=== PATIENT | male | born 1955 | race Caucasian/White ===

== ENCOUNTER → 2019-03-15 15:35 | Outpatient (CLI) | payer BC, SELFPAY ==
--- NOTE | 2019-03-15 15:42 | XR_ITS ---
PROCEDURE: XR KNEE LT 3V CLINICAL INDICATION: LEFT KNEE PAIN, UNSPECIFIED CHRONICITY COMPARISON: No exams were available for comparison FINDINGS: No fracture or dislocation. No lytic or blastic change. There is normal mineralization. The joint spaces are well-preserved except for mild narrowing of the patellofemoral space. No significant degenerative/arthritic changes. There is no loose body seen. No erosive changes evident. There is no effusion. IMPRESSION: Mild degenerate change primarily patellofemoral space Dictated by: Dr. Paco Meek MD 03/16/2019 08:51 Signed by: <Electronically signed by Dr. Paco Meek MD in [facility]> 03/16/2019 08:51
== END ==
PROVIDERS: PCP Family Medicine; Visit Provider Family Medicine
DX: M25.562 Pain in left knee (principal)
CPT/HCPCS: 73562

== ENCOUNTER → 2020-02-01 12:46 | Outpatient (CLI) | payer BC, SELFPAY ==
[2020-02-02 14:26] LABS: Covid-19 Nasal PCR Sendout Lex Not Detected
== END ==
PROVIDERS: PCP Family Medicine; Visit Provider Family Medicine
DX: Z03.818 Encounter for observation for suspected exposure to other biological agents ruled out (principal); Z11.59 Encounter for screening for other viral diseases
CPT/HCPCS: U0004

== ENCOUNTER → 2020-03-06 13:43 | Outpatient (CLI) | payer BC, SELFPAY ==
--- NOTE | 2020-03-06 13:48 | XR_ITS ---
PROCEDURE: XR KNEE LT 3V CLINICAL INDICATION: LT KNEE PAIN COMPARISON: CR XR KNEE LT 3V from 03/15/2019 FINDINGS: No fracture or dislocation. No lytic or blastic change. There is normal mineralization. Minimal osteoarthritic change patellofemoral joint once again noted not significantly changed. Other findings:None. IMPRESSION: No change minimal osteoarthritic change patellofemoral joint Dictated b Lorenzo Esposito MD 03/06/2020 15:47 Lorenzo Esposito MD in [facility] 03/06/2020 15:47
== END ==
PROVIDERS: PCP Family Medicine; Visit Provider Family Medicine
DX: M25.562 Pain in left knee (principal)
CPT/HCPCS: 73562

== ENCOUNTER → 2020-07-02 14:44 | Outpatient (CLI) | payer BC, SELFPAY ==
--- NOTE | 2020-07-02 14:47 | CT_ITS ---
PROCEDURE: CT CERVICAL SPINE WO CON CLINICAL INDICATION: RT UPPER LIMB PAIN RIGHT ARM NUMBNESS PAIN IN NECK AND ARM WHEN TILTING HEAD BACK COMPARISON: No exams were available for comparison TECHNIQUE: Axial images obtained with sagittal and coronal reformats. All CT scans at the facility use one or more dose reduction, viz: automated exposure control, ma/kV adjustment per patient size (including targeted exams where dose is matched to indication, i.e. head), or iterative reconstruction technique. Axial spiral CT scanning performed of the cervical spine beginning at the base of the skull and continuing to the upper T-spine. 3-D multiplanar reconstruction with 3-D manipulation of volumetric data set in image rendering was completed by the radiologist and/or technologist with the supervision of the radiologist on independent workstation. FINDINGS: There is straightening of the cervical lordosis. No fracture or dislocation is evident. C2-C3: Unremarkable. C3-C4: Mild bilateral foraminal narrowing from uncovertebral hypertrophy. C4-C5: Mild degenerative disc disease with minimal bulging disc. C5-C6: Degenerative disc disease with some endplate hypertrophic change with bilateral lateral recess and foraminal narrowing greater on the right. C6-C7: Degenerative disc disease. There is prominent uncovertebral hypertrophy on the right with right lateral recess and foraminal narrowing. There is canal stenosis at this level. There is also left lateral recess and foraminal narrowing. C7-T1: There is mild uncovertebral hypertrophy with bilateral foraminal narrowing slightly greater on the right. Lung apices are clear. Scattered small nodes are present in the neck. IMPRESSION: Multilevel cervical spondylosis with degenerative disc disease, endplate hypertrophic change, facet and uncovertebral hypertrophy with resultant foraminal and lateral recess narrowing and canal stenosis.. Please see above for detailed description at each level Dictated by: Lorenzo Esposito MD 07/03/2020 19:15 Lorenzo Esposito MD in [place] 07/03/2020 19:15
== END ==
PROVIDERS: PCP Family Medicine; Visit Provider Family Medicine
DX: M54.2 Cervicalgia (principal); M79.601 Pain in right arm
CPT/HCPCS: 72125

== ENCOUNTER 2020-08-06 15:00 | Outpatient (RCR) | payer BC, SELFPAY ==
--- NOTE | 2020-07-14 17:36 | HMH.PTOPEV ---
PT Outpatient Evaluation Rehab PT Outpatient Evaluation Start: 07/14/20 16:58 Freq: Status: Active Protocol: Document 07/14/20 17:09 ROHANXIMENA (Rec: 07/14/20 17:33 TIPMALENA [id number]) Electronically Signed By Chemo Duncan PT 07/14/20 17:09 Outpatient Therapy Subjective History Subjective History This is the initial Physical THerapy evaluation for José Miguel Krishnan. Pt is a 65 y/o male referred to PT for c/o RUE pain and paresthesia. Pt reports pain began ~ 3-4 weeks ago w/ insidious onset. Pt reports no known trauma to neck. Pt reports pain has steadily increased over the last few weeks. Pt reports c/ o paresthesia into 4th and 5th digits on R hand. Chief Complaint Pain,Paresthesia Symptom Type Ache,Throb,Sharp,Dull,Numbness ,Tingling Symptoms Relieved By Nothing Symptoms Aggravated By Physical Activity,Lifting Prior Functional Limitations None Current Functional Limitations Reaching,Lifting,Driving, Sleeping,Recreation Activity Symptom Description Constant but Variable Level of pain today (0-10) 5 Pain scale - at its best (0-10) 3 Pain scale - at its worst (0-10) 8 Cervical Eval Posture Head/C-Spine Posture Sitting Position Side Bent Right Head/C-Spine Posture Standing Position Side Bent Right AROM Cervical Spine Extension Active Range of 25 w/ pain in RUE Motion (degrees) Cervical Spine Flexion Active Range of 25 w/ pain in RUE Motion (degrees) Cervical Spine Right Lateral Flexion 20 w/ pain in RUE Active Range of Motion (degrees) Cervical Spine Left Lateral Flexion 35 - no pain Active Range of Motion (degrees) Special Test C-Spine Foraminal Compression (Spurling) Positive Right Test C-Spine Foraminal Distraction Test Positive C-Spine Compression Test Negative Left,Negative Right Outpatient Therapy Assessment Impairments Problems/Impairmments Palpation Tenderness,Impaired Range of Motion,Impaired Driving,Impaired Lifting, Impaired Recreational Activities,Impaired Work Activities Prognosis Rehab Potential Fair Clinical Impression Consistent with Diagnosis Yes Short Term Goals Number of Weeks 2 Decreased Palpation Tenderness Yes: 1/4 minimal Increase Range o
== END 2020-08-06 15:05 | disposition home or self-care (01) ==
LOC: PT 15:00
PROVIDERS: PCP Family Medicine; Visit Provider Family Medicine
DX: M50.30 Other cervical disc degeneration, unspecified cervical region (principal); M79.2 Neuralgia and neuritis, unspecified
CPT/HCPCS: 97010; 97012; 97014; 97110; 97163; G0283

== ENCOUNTER → 2020-08-11 09:35 | Outpatient (CLI) | payer BC, MEDICARE, SELFPAY ==
--- NOTE | 2020-08-11 10:02 | CA_ITS ---
APPROVED REPORT [place] Compounder: Jamia Quach RVT Laterality: Bilateral Study Quality: Good Indications: DIZZINESS Doppler Spectral Velocity Analysis ECA (R) 98.40/15.00 cm/s ECA (L) 152.90/19.20 cm/s dICA (R) 81.30/25.70 cm/s dICA (L) 68.50/24.80 cm/s Abel (R) 80.20/25.70 cm/s Abel (L) 74.50/25.70 cm/s pICA (R) 63.10/21.40 cm/s pICA (L) 72.00/24.00 cm/s dCCA (R) 81.30/17.10 cm/s dCCA (L) 76.30/18.00 cm/s pCCA (R) 135.80/16.00 cm/s pCCA (L) 103.70/20.60 cm/s Vert (R) 42.80/11.10 cm/s Vert (L) 38.20/9.70 cm/s ICA/CCA 1.00 ICA/CCA 0.98 Findings Study suggets less than 20% stenosis of the right internal cartoid artery. Study suggests less than 20% stenosis of the left internal cartoid artery. Antegrade flow seen bilateral vertebral arteries. Conclusion Study suggets less than 20% stenosis of the right internal cartoid artery. Study suggests less than 20% stenosis of the left internal cartoid artery. Antegrade flow seen bilateral vertebral arteries. Electronically signed by : Lorenzo Esposito MD 08/12/2020 15:17:47
== END ==
PROVIDERS: PCP Family Medicine; Visit Provider Family Medicine
DX: R42 Dizziness and giddiness (principal)
CPT/HCPCS: 93880

== ENCOUNTER → 2022-02-18 11:23 | Outpatient (CLI) | payer BC, MEDICARE, SELFPAY ==
[2022-02-19 08:19] LABS: Basophils # 0.1 K/mm3 (0-0.2); Basophils % 1.1 % (0.1-2.0); Eosinophils # 0.1 K/mm3 (0.0-0.4); Eosinophils % 0.9 % (0.1-12.0); Hematocrit 47.8 % (42.0-52.0); Hemoglobin 15.3 g/dL (14.1-18.0); Lymphocytes # 1.5 K/mm3 (0.7-4.5); Lymphocytes % 24.3 % (10-50); Mean Corpuscular HGB Conc 32.1 g/dL (31.8-35.4); Mean Corpuscular Hemoglobin 31.6 pg (27.0-31.2); Mean Corpuscular Volume 98.3 fl (80-94); Mean Platelet Volume 9.8 fl (7.4-10.4); Monocytes # 0.7 K/mm3 (0.1-1.0); Monocytes % 10.5 % (1.7-9.3); Neutrophils % 63.3 % (37.0-80.0); Platelet Count 198 K/mm3 (142-424); Red Blood Count 4.86 M/mm3 (4.60-6.20); Red Cell Distribution Width 13.7 % (11.5-17.5); White Blood Count 6.3 K/mm3 (4.8-10.8)
== END ==
PROVIDERS: PCP Family Medicine; Visit Provider Physician Assistant
DX: U07.1 COVID-19 (principal)
CPT/HCPCS: 36415; 85025; C9803; U0003; U0005

== ENCOUNTER → 2023-04-25 14:12 | Outpatient (CLI) | payer BC, SELFPAY ==
--- NOTE | 2023-04-25 14:22 | ECG_ITS ---
APPROVED REPORT Exam: Resting ECG HR:71 bpm ECG Measurements Heart Rate 71 AXES NE 162 P 54 QRSd 89 QRS 31 QT 343 T 68 QTc 365 Conclusion SINUS RHYTHM LOW QRS VOLTAGE IN PRECORDIAL LEADS [QRS DEFLECTION < 1.0 mV IN CHEST LEADS] POSSIBLE ANTERIOR MYOCARDIAL INFARCTION , PROBABLY OLD [30 ms Q WAVE IN V3/V4, OR R < 0.2 mV IN V4] BORDERLINE ECG UNCONFIRMED REPORT Electronically signed by : Mitchell Mejia MD 04/25/2023 17:04:40
--- NOTE | 2023-04-25 14:25 | XR_ITS ---
FINAL REPORT CLINICAL HISTORY: LBP COMPARISON: None FINDINGS: 5 views of the lumbar spine were obtained. There is no evidence of fracture or dislocation. The vertebral alignment is normal. There is mild degenerative change with multilevel osteophytes. No paraspinous soft tissue abnormalities identified. IMPRESSION: No acute bony abnormality. Reviewed, Interpreted and Dictated by Moreno Adorno III, MD Transcribed by Ute Fuller Authenticated and [facility]
== END ==
PROVIDERS: PCP Family Medicine; Visit Provider Family Medicine
DX: M54.50 Low back pain, unspecified (principal); R00.2 Palpitations
CPT/HCPCS: 72110; 93005

== ENCOUNTER 2023-10-11 12:36 | Outpatient (CLI) | payer BC, SELFPAY ==
[2023-10-11 12:31] LABS: Microscopic, Urine URINE MICROSCOPIC (MICROSCOPIC)
[2023-10-11 12:38] LABS: Basophils # 0.1 K/mm3 (0-0.2); Basophils % 1.4 % (0.1-2.0); Eosinophils # 0.2 K/mm3 (0.0-0.4); Eosinophils % 2.8 % (0.1-12.0); Hematocrit 48.8 % (42.0-52.0); Hemoglobin 16.4 g/dL (14.1-18.0); Lymphocytes # 2.2 K/mm3 (0.7-4.5); Lymphocytes % 35.2 % (10-50); Mean Corpuscular HGB Conc 33.6 g/dL (31.8-35.4); Mean Corpuscular Hemoglobin 32.9 pg (27.0-31.2); Mean Platelet Volume 7.8 fl (7.4-10.4); Monocytes # 0.4 K/mm3 (0.1-1.0); Monocytes % 5.7 % (1.7-9.3); Neutrophils # 3.4 K/mm3 (1.8-7.8); Platelet Count 207 K/mm3 (142-424); Red Blood Count 4.98 M/mm3 (4.60-6.20); Red Cell Distribution Width 13.9 % (11.5-17.5); White Blood Count 6.3 K/mm3 (4.8-10.8)
[2023-10-11 13:19] LABS: Alanine Aminotransferase 28 U/L (12-78); Albumin Level 4.5 g/dl (3.5-5.0); Albumin/Globulin Ratio 1.7 (1.1-1.8); Alkaline Phosphatase 103 U/L (38-126); Anion Gap 11.4 mEq/L (5-15); Aspartate Amino Transferase 32 U/L (17-59); Bilirubin,Total 0.7 mg/dl (0.2-1.3); Blood Urea Nitrogen 15 mg/dl (9-20); Calcium 9.3 mg/dl (8.4-10.2); Carbon Dioxide 28 mmol/L (22.0-30.0); Chloride 104 mmol/L (98-107); Chol/HDL Ratio 8.3 (1-3.5); Cholesterol 300 mg/dl (140-200); Estimated Glomerular Filt Rate 66 ml/min (>60); GFR (African American) 80 ML/MIN (>60); Globulin 2.7 g/dL (1.3-3.2); Glucose 96 mg/dl (74-100); HDL Cholesterol 36 mg/dl (40-60); Potassium 4.4 mmoL/L (3.5-5.1); Sodium 139 mmol/L (136-145); Total Protein,Serum 7.2 g/dl (6.3-8.2); Triglycerides 144 mg/dl (30-150); VLDL Cholesterol 29 mg/dL (0-40)
[2023-10-11 13:30] LABS: Direct LDL Cholesterol 184.78 mg/dL (100-129)
[2023-10-11 13:31] LABS: Appearance,Urine CLEAR (Clear); Bilirubin,Urine Negative (Negative); Blood, Urine Negative (Negative); Color,Urine YELLOW (Yellow); Glucose,Urine (UA) Negative (Negative); Ketones,Urine Negative (Negative); Leukocyte Esterase,Urine Negative (Negative); Nitrate,Urine Negative (Negative); PH,Urine 5.5 (5.0-8.5); Protein,Urine Negative (Negative); Specific Gravity, Urine >= 1.030 (1.005-1.030); Urobilinogen,Urine 0.2 EU/dl (0.2)
[2023-10-11 13:33] LABS: Free T4 (Free Thyroxine) 0.71 ng/dl (0.78-2.19)
[2023-10-11 13:37] LABS: 25-OH Vitamin D, Total 23.7 ng/mL (30-100)
[2023-10-11 13:52] LABS: Thyroid Stimulating Hormone 5.74 uIU/mL (0.465-4.68)
[2023-10-11 14:11] LABS: Vitamin B12 479 pg/mL (239-931)
[2023-10-11 14:51] LABS: Bacteria,Urine Trace /lpf; RBC,Urine Occasional #/hpf (0-3); Squamous Epithelial Cell,Urine Occasional #/hpf (0-5)
[2023-10-11 15:20] LABS: Hemoglobin A1C 5.4 % (4.0-6.0)
[2023-10-14 15:52] LABS: Prostate Specific Ag Screen 1.3 ng/ml (0.0-4.0)
== END 2023-10-11 23:59 ==
LOC: LAB.DROPOF 12:37
PROVIDERS: PCP Nurse Practitioner Family; Visit Provider Nurse Practitioner Family
DX: R53.83 Other fatigue (principal); Z13.1 Encounter for screening for diabetes mellitus; Z13.220 Encounter for screening for lipoid disorders; E03.9 Hypothyroidism, unspecified; Z12.5 Encounter for screening for malignant neoplasm of prostate
CPT/HCPCS: 80053; 80061; 81001; 82306; 82607; 83036; 84439; 84443; 85025; 87086; G0103

== ENCOUNTER 2023-12-13 16:11 | Outpatient (POV) | payer BC, SELFPAY | END 2023-12-13 23:59 | disposition home or self-care (01) | LOC: SC 16:12 | PROVIDERS: PCP Nurse Practitioner Family; Visit Provider Dermatology | DX: Z00.00 Encounter for general adult medical examination without abnormal findings (principal) ==

== ENCOUNTER 2024-02-22 09:24 | Day surgery (SDC) | payer BC, SELFPAY ==
[2024-02-20 11:18] VITALS: BMI 39.9
[2024-02-22] VITALS (7 sets, daily range): BP systolic 123–151; BP diastolic 60–92; PULSE 69–80; RESP 16–18; TEMP 36.2–36.6; O2SAT 93–98
[2024-02-22] MEDS: LACTATED RINGERS 1000ML 1,000 ML 25 ML IV (10:48)
--- NOTE | 2024-02-22 10:58 | P.PNANES_ITS ---
[facility] Disclaimer: The information contained in this section may have been updated after the patient was seen, as this information can be updated by other users. Medical History Hyperlipidemia Hypothyroidism Surgical History History of colonoscopy Family History Mother , at age 60 Cancer, Onset Age: 58 Lung Father , at age 69 Cancer, Onset Age: 61 Throat Social History (Updated 02/22/24 @ 10:45 by Lo Sims RN) Smoking Status: Never smoker alcohol intake: former substance use type: denies use current occupational status: other (na) Travel in the last 8 weeks: None caffeine: Yes [facility] Anesthesia Checklist Patient Identification Patient Identification: Arm Band Structural Data Admitted From: Home Planned Operative Procedure/s: Colonoscopy Consent for Planned Operative Procedure(s) Verified: Yes Verified Documents: Surgical Consent NPO Status Verified Time NPO: 00:00 Additional verifications Anesthesia Reactions: No Airway Assessment Mallampati Score:: Class III C-Spine Mobility Assessed: Yes TMJ Mobility Assessed: Yes Dentition: Edentulous Neurological Assessment Level of Consciousness: Awake, Alert and Appropriate Anesthesia Plan Anesthesia Risk discussed: Yes Anesthesia Plan: Verified ASA Class: III Anesthesia Type: MAC
--- NOTE | 2024-02-22 12:06 | HMH.SCOPE ---
Procedure: Date: 02/22/24 Patient Date of :: 1955 Procedure Performed:: Colonoscopy Indications:: The patient is a 68-year-old who presents for surveillance colonoscopy for a history of polyps in the past Performing Provider:: Praneeth Jhaveri MD Referring Provider:: Amisha Beebe APRN Sedation:: See RN records Procedure:: After placing the patient in the left lateral decubitus position, the colonoscopy was gently inserted into the rectum and under direct visualization advanced to the cecum which was identified by transillumination in the right lower quadrant, identification of the ileocecal valve, appendiceal orifice, and cecal strap. Color, texture, mucosa, and anatomy of the colon were carefully examined with the scope. Findings:: The quality of the bowel preparation was good. There was a sessile polyp 6 to 7 mm in size of the hepatic flexure. The polyp was removed by cold snare polypectomy. The polyp was retrieved. There was a sessile polyp less than 5 mm in size in the descending colon. The polyp was completely removed. The polyp was not retrieved. There was a sessile polyp less than 5 mm in size at the rectosigmoid colon. The polyp was removed by cold snare polypectomy. The polyp was retrieved. On retroflexion view of the rectum internal hemorrhoids were seen. Impression: Polyp of the hepatic flexure Polyp of the descending colon Polyp in the sigmoid colon Recommendations:: Await pathology results Repeat colonoscopy in 5 years Complications:: None Estimated blood obtained (mL): 0 Colonoscopy Component Colonoscopy Component Was a colonoscopy performed during today's procedure?: Yes Recommended follow up colonoscopy of at least 10 years?: Yes
== END 2024-02-22 12:28 | disposition home or self-care (01) ==
PROVIDERS: PCP Nurse Practitioner Family; Visit Provider Internal Medicine
PROC: (CPT 45385; principal; 2024-02-22 11:00)
DX: Z12.11 Encounter for screening for malignant neoplasm of colon (principal); Z86.010 Personal history of colon polyps; K64.8 Other hemorrhoids; D12.4 Benign neoplasm of descending colon; D12.3 Benign neoplasm of transverse colon; D12.5 Benign neoplasm of sigmoid colon
CPT/HCPCS: 45385; J2704; J7120

== ENCOUNTER 2024-02-23 17:53 | Observation (INO) | payer BC, MEDICARE, SELFPAY ==
[2024-02-23 17:55] VITALS: BP 145/82; PULSE 85; RESP 18; TEMP 36.8; O2SAT 97; BMI 39.9
--- NOTE | 2024-02-23 18:04 | PC.NURSE ---
DR SCHULTZ AT BEDSIDE
--- NOTE | 2024-02-23 18:09 | CT_ITS ---
PROCEDURE INFORMATION: Exam: CTA Abdomen and Pelvis With Contrast Exam date and time: 02/23/2024 7:45 PM Age: 68 years old Clinical indication: Other: Passing blood clots after colonoscopy TECHNIQUE: Imaging protocol: Computed tomographic angiography of the abdomen and pelvis with contrast. Exam focused on the arteries. 3D rendering (Not supervised by radiologist): MIP and/or 3D reconstructed images were created by the technologist. Total images: 1025 Radiation optimization: All CT scans at this facility use at least one of these dose optimization techniques: automated exposure control; mA and/or kV adjustment per patient size (includes targeted exams where dose is matched to clinical indication); or iterative reconstruction. Contrast material: ISOVUE; Contrast volume: 100 ml; Contrast route: INTRAVENOUS (IV); COMPARISON: CR XR LUMBAR SPINE MIN 4V 04/25/2023 2:28 PM FINDINGS: Diaphragm: Tiny hiatal hernia. Aorta: No aortic aneurysm. No aortic dissection. Celiac trunk and mesenteric arteries: No occlusion or significant stenosis. Renal arteries: No occlusion or significant stenosis. Right iliac arteries: No occlusion or significant stenosis. Left iliac arteries: No occlusion or significant stenosis. Liver: Decreased liver attenuation from phase of contrast versus steatosis. Otherwise, unremarkable liver. Gallbladder and biliary ducts: Heterogeneous intraluminal gallbladder content reflecting sludge or noncalcified stones. No secondary signs of acute cholecystitis. No bile duct dilatation. Pancreas: Unremarkable. No mass. No ductal dilation. Spleen: Nonenlarged spleen with calcified granuloma. Adrenal glands: Unremarkable. No mass. Kidneys and ureters: No hydronephrosis, nephrolithiasis, or renal mass. Tiny subcentimeter bilateral renal cortical hypodensities are far too small to characterize but statistically cysts requiring no strict follow-up. No ureteral stones. Stomach and bowel: Unremarkable stomach and duodenum. No ileus or bowel obstruction. Small bowel is within normal limits. Unremarkable terminal ileum. Unremarkable colon and rectum. No active intraluminal contrast extravasation to provide a source for acute GI bleed. Appendix: Normal appendix. Intraperitoneal space: Unremarkable. No free air. No significant fluid collection. Lymph nodes: Small benign appearing bilateral inguinal lymph nodes. Urinary bladder: Unremarkable. No mass. Reproductive: Nonenlarged prostate. Bones/joints: Moderate degenerative disc disease with minor retrolisthesis at L5-S1. Mild degenerative changes remainder of the thoracolumbar spine. Mild degenerative changes bilateral hips and SI joints. No acute osseous abnormality. Soft tissues: Tiny fat containing umbilical hernia. Benign intramuscular lipoma anterior left ileo psoas muscle. IMPRESSION: 1. No acute intra-abdominal or pelvic process. Specifically, study does not provide etiology for acute GI bleed. 2. Normal abdominal CTA 3. Chronic and incidental findings.
[2024-02-23 18:30] VITALS: BP 127/75; PULSE 82; O2SAT 92
--- NOTE | 2024-02-23 18:53 | ED_ITS ---
Discharge Plan Disposition Patient Disposition: Admitted Clinical Impressions Clinical Impression: Acute GI bleeding, H/O colonoscopy with polypectomy Discharge ED Provider: Ailyn Marte Adult HPI General Chief complaint: GI Bleed Stated complaint: Rectal bleeding,has colonoscopy 02/22/24 Time Seen by Provider: 02/23/24 18:02 Mode of Arrival: Ambulatory Limitations: No Limitations Description of Symptoms (Recalled from ER Triage Doc. by RN): PT REPORTS BLOODY STOOL AND CLOTS AFTER SCREENING COLONOSCOPY YESTERDAY. PT DENIES PAIN. REPORTS POLYP REMOVAL History of Present Illness HPI narrative: This patient is a 68-year-old male with a history of hyperlipidemia and hypothyroidism presenting with concern for an episode of bloody stool and clots after screening colonoscopy yesterday. Patient states that he feels like he needs to have a bowel movement but has had no associated pain, fever, nausea, or vomiting. He had a colonoscopy yesterday with Dr. Jhaveri, and he reports that he had multiple polyps removed. On medical record review, there were no complications with the colonoscopy. Patient is feeling fine otherwise. Related Data Previous Rx's ?Medication ?Instructions ?Recorded atorvastatin 40 mg tablet 40 mg PO HS #90 tabs 10/13/23 levothyroxine 50 mcg tablet 50 mcg PO DAILY thyroid #90 tabs 10/13/23 Allergies Allergy/AdvReac Type Severity Reaction Status Date / Time No Known Allergies Allergy Verified 02/22/24 10:45 [facility] Disclaimer: The information contained in this section may have been updated after the patient was seen, as this information can be updated by other users. Medical History Hyperlipidemia Hypothyroidism Surgical History History of colonoscopy Family History Mother Cancer, Onset Age: 58 Father Cancer, Onset Age: 61 Social History Smoking Status: Never smoker alcohol intake: former substance use type: denies use current occupational status: other (na) Travel in the last 8 weeks: None caffeine: Yes ROS Obtained: Yes All systems reviewed & no additional complaints except as documented Physical Exam General General appearance: alert and in no apparent distress Head Head exam: atraumatic and normocephalic Eye Eye exam: Present normal appearance, PERRL and EOMI ENT ENT exam: Present normal exam, normal oropharynx, mucous membranes moist and normal external ear exam Neck Neck exam: Present normal inspection, full ROM and trachea midline; Absent tenderness Chest Chest inspection: Present normal inspection and symmetric chest wall rise; Absent tenderness Respiratory Respiratory exam: Present normal lung sounds bilaterally; Absent respiratory distress, wheezes, stridor or accessory muscle use Cardiovascular Cardiovascular exam: Present regular rate and normal rhythm Abdominal Exam Abdominal exam: Present soft; Absent distention, tenderness or guarding Rectal Exam Rectal exam: Present normal rectal tone, tenderness and other (Significant amount of blood at the rectum with bright red on my glove with rectal examination. No obvious palpable masses or hemorrhoids.) Extremities Exam Extremities exam: Present normal inspection, full ROM and normal capillary refill; Absent tenderness or edema Back Exam Back exam: Present normal inspection and full ROM; Absent tenderness Neurological Exam Neurological exam: Present alert, oriented X3, CN II-XII intact and normal gait; Absent motor sensory deficit Psychiatric Psychiatric exam: Present normal affect and normal mood Skin Skin exam: Present warm and dry Medical Decision Making Medical Records Medical records reviewed: Yes I reviewed the patient's medical records. [place] Inquiry Pt receiving controlled substance: No Vital Signs: 02/23/24 17:55 02/23/24 18:30 02/23/24 21:27 Temperature 98.2 F 98.2 F Temperature Source Oral Oral Pulse Rate 82 80 Pulse Rate [Radial] 85 Respiratory Rate 18 18 Blood Pressure 127/75 145/82 H Blood Pressure [Right Arm] 145/82 H Blood Pressure Mean 92 Blood Pressure Mean [Right Arm] 103 Blood Pressure Source Automatic Cuff Blood Pressure Source [Right Arm] Automatic Cuff Blood Pressure Position Sitting Blood Pressure Position [Right Arm] Sitting 02 Sat by Pulse Oximetry 97 92 L Oxygen Delivery Method Room Air Room Air Lab Data Lab results reviewed: Yes I reviewed the patient's lab results. Lab Results 02/23/24 18:50: WBC 6.0, RBC 4.64, Hgb 15.3, Hct 43.7, MCV 94.3 H, MCH 32.9 H, MCHC 35.0, RDW 13.7, Plt Count 213, MPV 7.7, Neut % (Auto) 52.9, Lymph % (Auto) 35.4, Calhoun % (Auto) 8.3, Eos % (Auto) 2.2, Baso % (Auto) 1.2, Neut # (Auto) 3.2, Lymph # (Auto) 2.1, Calhoun # (Auto) 0.5, Eos # (Auto) 0.1, Baso # (Auto) 0.1, PT 10.5, INR 0.93, APTT 29.3, Sodium 139, Potassium 3.8, Chloride 109 H, Carbon Dioxide 23, Anion Gap 10.8, BUN 22 H, Creatinine 1.10, Estimated Creat Clear 108, Estimated GFR 66, Est GFR ( Amer) 80, Glucose 132 H, Lactate 1.6, Calcium 8.7, Total Bilirubin 0.7, AST 46, ALT 39, Alkaline Phosphatase 75, Total Protein 7.2, Albumin 4.1, Globulin 3.1, Albumin/Globulin Ratio 1.3 02/23/24 18:50 02/23/24 18:50 Orders (Tests/Meds): ED MEDICATIONS Generic Name Dose Route Start Last Admin Trade Name Freq PRN Reason Stop Dose Admin Sodium Chloride 10 ml 02/23/24 18:54 Sodium Chloride 0.9% 10ml Flush Syringe IV 03/24/24 18:53 NEEDED PRN Maintain IV Site Sodium Chloride 10 ml 02/23/24 19:51 02/23/24 19:53 Sodium Chloride 0.9% 10ml Syr (Rad Only) IV 03/24/24 19:50 10 ml NEEDED PRN Administration Maintain IV Site Discontinued Medications Generic Name Dose Route Start Last Admin Trade Name Freq PRN Reason Stop Dose Admin Iopamidol 100 ml 02/23/24 19:51 02/23/24 19:53 Iopamidol-370 (76%);100ml Bottle IV 02/23/24 19:52 100 ml ONCE ONE Administration Sodium Chloride 50 ml 02/23/24 19:51 02/23/24 19:53 0.9 % Sodium Chloride 50 Ml Vial IV 02/23/24 19:52 50 ml ONCE ONE Administration ORDERS Category Date Time Status CT angio abdomen pelvis Stat Cat Scan 02/23/24 18:09 Completed Activated Partial Thrombo Time Stat Lab 02/23/24 18:50 Completed Basic Metabolic Panel AMLAB Lab 02/24/24 06:00 Ordered Complete Blood Count Auto Diff AMLAB Lab 02/24/24 06:00 Ordered Complete Blood Count Auto Diff Stat Lab 02/23/24 18:50 Completed Comprehensive Metabolic Panel Stat Lab 02/23/24 18:50 Completed Lactic Acid Stat Lab 02/23/24 18:50 Completed Prothrombin Time INR Stat Lab 02/23/24 18:50 Completed Medical Decision Narrative: In summary, this patient is a 68-year-old male presenting to the Emergency Department for evaluation of bright red blood per rectum and blood clots after colonoscopy yesterday. Differential diagnoses considered include but are not limited to hemorrhoids, bleeding from polyp removal, colon perforation, anemia. Ruling out the most morbid conditions drove assessment. It should be noted patient's history includes hypothyroidism and hyperlipidemia which may or may not be at goal therapy. This complicates all aspects of care by increasing patient's risk for morbidity. I reviewed patient's past medical records and noted his colonoscopy yesterday as per HPI, which was uncomplicated. On exam, the patient is well-appearing with benign abdominal exam and normal vital signs on cardiac telemetry. Workup included CBC, CMP, lactic acid, and CTA abdomen and pelvis. I independently interpreted CT scan prior to the radiologist read and noted no obvious area of active contrast extravasation. I had an interactive discussion with the radiologist to confirm this. Please see their read for final interpretation. Labs were obtained that demonstrated normal lactic acid, no significant leukocytosis, no anemia. Hemoglobin is similar to prior lab evaluation. On reassessment, patient has had continued bleeding with significant mount of blood on rectal exam as well. Given this, I feel he would benefit from admission for monitoring of his hemoglobin and to ensure bleeding stops. I had an interactive discussion with the hospitalist who admitted the patient in stable condition for further evaluation and management. Critical Care Critical Care Time Critical Care Time: No
[2024-02-23 19:02] LABS: Basophils # 0.1 K/mm3 (0-0.2); Basophils % 1.2 % (0.1-2.0); Eosinophils # 0.1 K/mm3 (0.0-0.4); Eosinophils % 2.2 % (0.1-12.0); Hematocrit 43.7 % (42.0-52.0); Hemoglobin 15.3 g/dL (14.1-18.0); Lymphocytes # 2.1 K/mm3 (0.7-4.5); Lymphocytes % 35.4 % (10-50); Mean Corpuscular Hemoglobin 32.9 pg (27.0-31.2); Mean Corpuscular Volume 94.3 fl (80-94); Mean Platelet Volume 7.7 fl (7.4-10.4); Monocytes # 0.5 K/mm3 (0.1-1.0); Monocytes % 8.3 % (1.7-9.3); Neutrophils # 3.2 K/mm3 (1.8-7.8); Neutrophils % 52.9 % (37.0-80.0); Platelet Count 213 K/mm3 (142-424); Red Blood Count 4.64 M/mm3 (4.60-6.20); Red Cell Distribution Width 13.7 % (11.5-17.5)
[2024-02-23 19:16] LABS: Activated Partial Thrombo Time 29.3 seconds (22.8-30.6); INR 0.93 (0.9-1.1); Prothrombin Time 10.5 seconds (10.1-12.5)
[2024-02-23 19:30] LABS: Alanine Aminotransferase 39 U/L (12-78); Albumin Level 4.1 g/dl (3.5-5.0); Albumin/Globulin Ratio 1.3 (1.1-1.8); Alkaline Phosphatase 75 U/L (38-126); Anion Gap 10.8 mEq/L (5-15); Aspartate Amino Transferase 46 U/L (17-59); Bilirubin,Total 0.7 mg/dl (0.2-1.3); Blood Urea Nitrogen 22 mg/dl (9-20); Calcium 8.7 mg/dl (8.4-10.2); Carbon Dioxide 23 mmol/L (22.0-30.0); Chloride 109 mmol/L (98-107); Creatinine Clearance Estimated 108 mL/min (50-200); Estimated Glomerular Filt Rate 66 ml/min (>60); GFR (African American) 80 ML/MIN (>60); Globulin 3.1 g/dL (1.3-3.2); Glucose 132 mg/dl (74-100); Potassium 3.8 mmoL/L (3.5-5.1); Sodium 139 mmol/L (136-145); Total Protein,Serum 7.2 g/dl (6.3-8.2)
[2024-02-23 19:31] LABS: Lactic Acid 1.6 mmol/L (0.7-2.1)
[2024-02-23] MEDS: IOPAMIDOL-370 (76%);100ML BOTTLE 100 ML IV (19:53)
[2024-02-23] MEDS: 0.9 % SODIUM CHLORIDE 50 ML VIAL IV (19:53)
[2024-02-23] MEDS: SODIUM CHLORIDE 0.9% 10ML SYR (RAD ONLY) 10 ML IV (19:53)
--- NOTE | 2024-02-23 20:57 | PC.NURSE ---
spoke with house father for bed request and placed order, per ER MD hospitalist admit patient for GI bleed
--- NOTE | 2024-02-23 21:12 | PC.NURSE ---
report called to Jackie.
--- NOTE | 2024-02-23 21:15 | PC.NURSE ---
[id number] RECEIVED PHONE REPORT FRON POLINA RN/ED NURSE. PATIENT IS A 68 YO MALE WITH GI BLEED POST COLONOSCOPY AND REMOVAL OF SEVERAL POLYPS. MAR TRANSFER VIA W/C.
[2024-02-23 21:27] VITALS: BP 145/82; PULSE 80; RESP 18; TEMP 36.8; O2SAT 95
--- NOTE | 2024-02-23 21:30 | EXP.HP ---
History of Present Illness *Admission Date: 02/23/24 *Reason for visit:: rectal bleeding *History of present illness: 68-year-old male who had colonoscopy performed yesterday by Dr. Jhaveri. Reportedly had multiple polyps removed. Presented to the ER because he has been having episodes of bloody stool and clots after his screening. Denies any blood thinners. No hematemesis or coffee-ground emesis. On evaluation in the ER, found to have some mild abdominal discomfort. Given the ER shows normal hemoglobin. Denies fever, nausea, vomiting. Given symptoms and significant bleeding, medicine consulted for admission and evaluation. On arrival to the floor, having some mild abdominal pain. Stable on room air however. States he has been passing bright red blood and clots with bowel movements. He had a bowel movement Tuesday after his colonoscopy with bright red blood. Had a bowel movement again morning where he passed clots and dark blood. Feels a little urge at this time but has not had further bowel movements as of yet. [facility] Disclaimer: The information contained in this section may have been updated after the patient was seen, as this information can be updated by other users. Medical History Hyperlipidemia Hypothyroidism Surgical History History of colonoscopy Family History Father Mother Cancer Mother, Onset Age: 58 Father, Onset Age: 61 Social History Smoking Status: Never smoker alcohol intake: former substance use type: denies use current occupational status: other (na) Travel in the last 8 weeks: None caffeine: Yes Review of Systems Review of Systems Review of systems (narrative): 14 point review of systems performed, pertinent positives and negatives as per HPI Meds Home Medications and Allergies Home Medications ?Medication ?Instructions ?Recorded ?Confirmed ?Type atorvastatin 40 mg tablet 40 mg PO HS #90 tabs 10/13/23 02/23/24 Rx levothyroxine 50 mcg tablet 50 mcg PO DAILY thyroid #90 tabs 10/13/23 02/23/24 Rx New Prescriptions to Start Prescriptions: Allergies Allergy/AdvReac Type Severity Reaction Status Date / Time No Known Allergies Allergy Verified 02/22/24 10:45 Exam Data for Last 24 hours Vital signs and Labs for Last 24 Hours: Temp Pulse Resp BP Pulse Ox O2 Del Method 98.0 F 69 16 117/60 96 Room Air 02/24/24 04:00 02/24/24 04:00 02/24/24 04:00 02/24/24 04:00 02/24/24 04:00 02/24/24 06:32 Laboratory Results - last 24 hr 02/23/24 18:50: WBC 6.0, RBC 4.64, Hgb 15.3, Hct 43.7, MCV 94.3 H, MCH 32.9 H, MCHC 35.0, RDW 13.7, Plt Count 213, MPV 7.7, Neut % (Auto) 52.9, Lymph % (Auto) 35.4, [place] % (Auto) 8.3, Eos % (Auto) 2.2, Baso % (Auto) 1.2, Neut # (Auto) 3.2, Lymph # (Auto) 2.1, [place] # (Auto) 0.5, Eos # (Auto) 0.1, Baso # (Auto) 0.1, PT 10.5, INR 0.93, APTT 29.3, Sodium 139, Potassium 3.8, Chloride 109 H, Carbon Dioxide 23, Anion Gap 10.8, BUN 22 H, Creatinine 1.10, Estimated Creat Clear 108, Estimated GFR 66, Est GFR ( Amer) 80, Glucose 132 H, Lactate 1.6, Calcium 8.7, Total Bilirubin 0.7, AST 46, ALT 39, Alkaline Phosphatase 75, Total Protein 7.2, Albumin 4.1, Globulin 3.1, Albumin/Globulin Ratio 1.3 02/24/24 05:17: WBC 5.9, RBC 4.43 L, Hgb 14.5, Hct 42.1, MCV 95.1 H, MCH 32.7 H, MCHC 34.3, RDW 14.0, Plt Count 191, MPV 7.6, Neut % (Auto) 45.9, Lymph % (Auto) 40.7, [place] % (Auto) 8.1, Eos % (Auto) 4.0, Baso % (Auto) 1.3, Neut # (Auto) 2.7, Lymph # (Auto) 2.4, [place] # (Auto) 0.5, Eos # (Auto) 0.2, Baso # (Auto) 0.1, Sodium 137, Potassium 3.8, Chloride 110 H, Carbon Dioxide 26, Anion Gap 4.8 L, BUN 20, Creatinine 1.10, Estimated Creat Clear 107, Estimated GFR 66, Est GFR ( Amer) 80, Glucose 101 H D, Calcium 8.3 L I & O for Last 24 hours: Intake & Output 02/21/24 02/22/24 02/23/24 02/24/24 23:59 23:59 23:59 23:59 Weight 116.21 kg 120.928 kg Constitutional Constitutional: no acute distress, obese and cooperative *Routine HEENT Exam Head: Present normocephalic Eye: Present EOMI and PERRL ENT: Present mucous membranes moist *Routine Neck Exam Neck: Present supple; Absent lymphadenopathy *Routine Respiratory Exam Respiratory: Present CTA bilaterally *Routine Cardiovascular Exam Cardiovascular: Present RRR *Routine Abdominal Exam Abdominal: Present soft and normoactive bowel sounds; Absent tenderness *Routine Rectal Exam Rectal:: deferred *Routine Genitalia Exam Genitalia:: deferred *Routine Extremities Exam Extremities: Absent cyanosis, clubbing or edema *Routine Skin Exam Skin: Present warm; Absent rash *Routine Neurological Exam Neurological: Present alert, oriented X3 and moving all extremities; Absent altered mental status Assessment and Plan *Assessment and plan (1) Acute GI bleeding: Status: Acute Category: Medical Code(s): K92.2 - Gastrointestinal hemorrhage, unspecified (2) H/O colonoscopy with polypectomy: Status: Acute Category: Surgical Code(s): Z98.890 - Other specified postprocedural states; Z86.010 - Personal history of colonic polyps (3) HLD (hyperlipidemia): Status: Acute Category: Medical Code(s): E78.5 - Hyperlipidemia, unspecified (4) Hypothyroidism: Status: Acute Category: Medical Code(s): E03.9 - Hypothyroidism, unspecified (5) Class 2 obesity: Status: Chronic Category: Medical Code(s): E66.9 - Obesity, unspecified Plan 68-year-old male with colonoscopy yesterday. Had removal of at least 3 polyps. Developed bleeding after his procedure with bright red blood x 1, followed by clots and dark blood x 1 prior to presentation to the ER. Discussed case with ER physician, request admission for serial H&H and evaluation if he has continued bleeding. I agreed to admit for further management. May necessitate intervention if continues to bleed. Surgery consulted. Problems addressed as follows: Acute GI bleed Post polypectomy bleed -Appears to have lower GI bleed likely secondary to polyp removal. Will do serial hemoglobins. hemoglobin 15.3 on admission. Previous labs 5 months ago with hemoglobin of 16.4. -CBC, CMP, magnesium ordered for the morning. -Kidney function normal with BUN 22, creatinine 1.1 - Coags normal with PT 10.5, INR 0.93, PTT 29 -Not on any anticoagulants. -Surgery consulted to evaluate in the morning for need for possible repeat colonoscopy to achieve hemostasis. Hyperlipidemia: Hold home Lipitor Hypothyroid: Hold levothyroxine Obesity complicates all aspects of his care Full code Clear liquid diet until midnight, n.p.o. thereafter Holding anticoagulation in the setting of bleeding
--- NOTE | 2024-02-23 21:36 | PC.NURSE ---
Patient arrived to floor via wheelchair from ED at 21:28.
[2024-02-23 21:40] VITALS: BMI 37.9
[2024-02-23 21:41] VITALS: BP 137/71; PULSE 78; RESP 18; O2SAT 92
[2024-02-23 22:19] VITALS: O2SAT 97
--- NOTE | 2024-02-24 03:53 | PC.NURSE ---
NPO SINCE MN. SURGICAL CONSULT PENDING. HAS NOT PASSED ANY MORE BLOOD SINCE ADMISSION. RESTING WELL AT THIS TIME.
[2024-02-24 04:00] VITALS: BP 117/60; PULSE 69; RESP 16; TEMP 36.7; O2SAT 96; BMI 39.4
[2024-02-24 06:20] LABS: Anion Gap 4.8 mEq/L (5-15); Blood Urea Nitrogen 20 mg/dl (9-20); Calcium 8.3 mg/dl (8.4-10.2); Carbon Dioxide 26 mmol/L (22.0-30.0); Chloride 110 mmol/L (98-107); Creatinine Clearance Estimated 107 mL/min (50-200); Estimated Glomerular Filt Rate 66 ml/min (>60); GFR (African American) 80 ML/MIN (>60); Glucose 101 mg/dl (74-100); Potassium 3.8 mmoL/L (3.5-5.1); Sodium 137 mmol/L (136-145)
[2024-02-24 06:40] LABS: Basophils # 0.1 K/mm3 (0-0.2); Basophils % 1.3 % (0.1-2.0); Eosinophils # 0.2 K/mm3 (0.0-0.4); Hematocrit 42.1 % (42.0-52.0); Hemoglobin 14.5 g/dL (14.1-18.0); Lymphocytes # 2.4 K/mm3 (0.7-4.5); Lymphocytes % 40.7 % (10-50); Mean Corpuscular HGB Conc 34.3 g/dL (31.8-35.4); Mean Corpuscular Hemoglobin 32.7 pg (27.0-31.2); Mean Corpuscular Volume 95.1 fl (80-94); Mean Platelet Volume 7.6 fl (7.4-10.4); Monocytes # 0.5 K/mm3 (0.1-1.0); Monocytes % 8.1 % (1.7-9.3); Neutrophils # 2.7 K/mm3 (1.8-7.8); Neutrophils % 45.9 % (37.0-80.0); Platelet Count 191 K/mm3 (142-424); Red Blood Count 4.43 M/mm3 (4.60-6.20); White Blood Count 5.9 K/mm3 (4.8-10.8)
--- NOTE | 2024-02-24 07:17 | HMH.PHAINT1 ---
Pharmacy Intervention Comments: MEDICATION RECONCILIATION COMPLETED ON PATIENT USING EXTERNAL FILL HISTORY FROM PHARMACY. -DONITA WELLER, PERNELLD
[2024-02-24 08:00] VITALS: BP 144/77; PULSE 64; RESP 18; TEMP 37.5; O2SAT 97
--- NOTE | 2024-02-24 08:52 | EXP.SURG.CON ---
History of Present Illness *Admission Date: 02/23/24 *Reason for visit:: Gastrointestinal hemorrhage status post colonoscopy with polypectomy *History of present illness: This is a 68-year-old gentleman seen in consultation from the primary service after being admitted for evaluation regarding post polypectomy bleed. Please see HPI forwarded from admission H&P below. Forwarded from admission H&P: 68-year-old male who had colonoscopy performed yesterday by Dr. Jhaveri. Reportedly had multiple polyps removed. Presented to the ER because he has been having episodes of bloody stool and clots after his screening. Denies any blood thinners. No hematemesis or coffee-ground emesis. On evaluation in the ER, found to have some mild abdominal discomfort. Given the ER shows normal hemoglobin. Denies fever, nausea, vomiting. Given symptoms and significant bleeding, medicine consulted for admission and evaluation. On arrival to the floor, having some mild abdominal pain. Stable on room air however. States he has been passing bright red blood and clots with bowel movements. He had a bowel movement Tuesday after his colonoscopy with bright red blood. Had a bowel movement again morning where he passed clots and dark blood. Feels a little urge at this time but has not had further bowel movements as of yet. [facility] Disclaimer: The information contained in this section may have been updated after the patient was seen, as this information can be updated by other users. Medical History Hyperlipidemia Hypothyroidism Surgical History History of colonoscopy Family History Father Mother Cancer Mother, Onset Age: 58 Father, Onset Age: 61 Social History Smoking Status: Never smoker alcohol intake: former substance use type: denies use current occupational status: other (na) Travel in the last 8 weeks: None caffeine: Yes Meds Home Medications and Allergies Home Medications ?Medication ?Instructions ?Recorded ?Confirmed ?Type atorvastatin 40 mg tablet 40 mg PO HS #90 tabs 10/13/23 02/23/24 Rx levothyroxine 50 mcg tablet 50 mcg PO DAILY thyroid #90 tabs 10/13/23 02/23/24 Rx New Prescriptions to Start Prescriptions: Allergies Allergy/AdvReac Type Severity Reaction Status Date / Time No Known Allergies Allergy Verified 02/22/24 10:45 Exam (Inpt) Vital signs and Labs for Last 24 Hours: Temp Pulse Resp BP Pulse Ox O2 Del Method 99.5 F 64 18 144/77 H 97 Room Air 02/24/24 08:00 02/24/24 08:00 02/24/24 08:00 02/24/24 08:00 02/24/24 08:00 02/24/24 08:00 Laboratory Results - last 24 hr 02/23/24 18:50: WBC 6.0, RBC 4.64, Hgb 15.3, Hct 43.7, MCV 94.3 H, MCH 32.9 H, MCHC 35.0, RDW 13.7, Plt Count 213, MPV 7.7, Neut % (Auto) 52.9, Lymph % (Auto) 35.4, [place] % (Auto) 8.3, Eos % (Auto) 2.2, Baso % (Auto) 1.2, Neut # (Auto) 3.2, Lymph # (Auto) 2.1, [place] # (Auto) 0.5, Eos # (Auto) 0.1, Baso # (Auto) 0.1, PT 10.5, INR 0.93, APTT 29.3, Sodium 139, Potassium 3.8, Chloride 109 H, Carbon Dioxide 23, Anion Gap 10.8, BUN 22 H, Creatinine 1.10, Estimated Creat Clear 108, Estimated GFR 66, Est GFR ( Amer) 80, Glucose 132 H, Lactate 1.6, Calcium 8.7, Total Bilirubin 0.7, AST 46, ALT 39, Alkaline Phosphatase 75, Total Protein 7.2, Albumin 4.1, Globulin 3.1, Albumin/Globulin Ratio 1.3 02/24/24 05:17: WBC 5.9, RBC 4.43 L, Hgb 14.5, Hct 42.1, MCV 95.1 H, MCH 32.7 H, MCHC 34.3, RDW 14.0, Plt Count 191, MPV 7.6, Neut % (Auto) 45.9, Lymph % (Auto) 40.7, [place] % (Auto) 8.1, Eos % (Auto) 4.0, Baso % (Auto) 1.3, Neut # (Auto) 2.7, Lymph # (Auto) 2.4, [place] # (Auto) 0.5, Eos # (Auto) 0.2, Baso # (Auto) 0.1, Sodium 137, Potassium 3.8, Chloride 110 H, Carbon Dioxide 26, Anion Gap 4.8 L, BUN 20, Creatinine 1.10, Estimated Creat Clear 107, Estimated GFR 66, Est GFR ( Amer) 80, Glucose 101 H D, Calcium 8.3 L I & O for Labs for Last 24 Hours: Intake & Output 02/21/24 02/22/24 02/23/24 02/24/24 11:59 11:59 11:59 11:59 Intake Total 270 / 270 Output Total 0 / 0 Balance 270 / 270 Weight 266 lb 9.6 oz Constitutional: no acute distress Respiratory: Absent respiratory distress Cardiac: Absent Tachycardia GI: Present soft Results Labs 02/24/24 05:17 02/24/24 05:17 Labs: Laboratory Results - last 24 hr 02/23/24 18:50: WBC 6.0, RBC 4.64, Hgb 15.3, Hct 43.7, MCV 94.3 H, MCH 32.9 H, MCHC 35.0, RDW 13.7, Plt Count 213, MPV 7.7, Neut % (Auto) 52.9, Lymph % (Auto) 35.4, [place] % (Auto) 8.3, Eos % (Auto) 2.2, Baso % (Auto) 1.2, Neut # (Auto) 3.2, Lymph # (Auto) 2.1, [place] # (Auto) 0.5, Eos # (Auto) 0.1, Baso # (Auto) 0.1, PT 10.5, INR 0.93, APTT 29.3, Sodium 139, Potassium 3.8, Chloride 109 H, Carbon Dioxide 23, Anion Gap 10.8, BUN 22 H, Creatinine 1.10, Estimated Creat Clear 108, Estimated GFR 66, Est GFR ( Amer) 80, Glucose 132 H, Lactate 1.6, Calcium 8.7, Total Bilirubin 0.7, AST 46, ALT 39, Alkaline Phosphatase 75, Total Protein 7.2, Albumin 4.1, Globulin 3.1, Albumin/Globulin Ratio 1.3 02/24/24 05:17: WBC 5.9, RBC 4.43 L, Hgb 14.5, Hct 42.1, MCV 95.1 H, MCH 32.7 H, MCHC 34.3, RDW 14.0, Plt Count 191, MPV 7.6, Neut % (Auto) 45.9, Lymph % (Auto) 40.7, [place] % (Auto) 8.1, Eos % (Auto) 4.0, Baso % (Auto) 1.3, Neut # (Auto) 2.7, Lymph # (Auto) 2.4, [place] # (Auto) 0.5, Eos # (Auto) 0.2, Baso # (Auto) 0.1, Sodium 137, Potassium 3.8, Chloride 110 H, Carbon Dioxide 26, Anion Gap 4.8 L, BUN 20, Creatinine 1.10, Estimated Creat Clear 107, Estimated GFR 66, Est GFR ( Amer) 80, Glucose 101 H D, Calcium 8.3 L Assessment and Plan *Assessment and plan (1) H/O colonoscopy with polypectomy: Status: Acute Category: Surgical Code(s): Z98.890 - Other specified postprocedural states; Z86.010 - Personal history of colonic polyps (2) Acute GI bleeding: Status: Acute Category: Medical Code(s): K92.2 - Gastrointestinal hemorrhage, unspecified Plan Hemoglobin 14.5 this a.m. Most recent bowel movement revealed more clot as opposed to bright red blood. No definitive evidence of continued bleeding (most likely equilibration). Continue serial hemoglobin/hematocrit If evidence of continued bleeding develops a repeat colonoscopy with likely clip placement will be warranted
--- NOTE | 2024-02-24 12:30 | P.DS_ITS ---
General Admission date:: 02/23/24 Discharge date: 02/24/24 HPI HPI HPI: 68-year-old male who had colonoscopy performed yesterday by Dr. Jhaveri. Reportedly had multiple polyps removed. Presented to the ER because he has been having episodes of bloody stool and clots after his screening. Denies any blood thinners. No hematemesis or coffee-ground emesis. On evaluation in the ER, found to have some mild abdominal discomfort. Given the ER shows normal hemoglobin. Denies fever, nausea, vomiting. Given symptoms and significant bleeding, medicine consulted for admission and evaluation. On arrival to the floor, having some mild abdominal pain. Stable on room air however. States he has been passing bright red blood and clots with bowel movements. He had a bowel movement Tuesday after his colonoscopy with bright red blood. Had a bowel movement again morning where he passed clots and dark blood. Feels a little urge at this time but has not had further bowel movements as of yet. Hospital Course Hospital Course Hospital Course: 68-year-old male with colonoscopy yesterday. Had removal of at least 3 polyps. Developed bleeding after his procedure with bright red blood x 1, followed by clots and dark blood x 1 prior to presentation to the ER. Discussed case with ER physician, request admission for serial H&H and evaluation if he has continued bleeding. I agreed to admit for further management. Surgery was consulted. Serial hemoglobins monitored. No further bleeding after admission. Hemoglobin remained stable. Recommend no intervention at this time, stable to discharge home with close follow-up as an outpatient and repeat labs in the next 48 to 72 hours. Problems addressed as follows: Acute GI bleed Post polypectomy bleed -Patient presented with 2 episodes of bloody bowel movements. Hemoglobin 15.3 on admission. Appears to be around his baseline. Monitored overnight, no further bleeding during admission. Hemoglobin remained stable, in the mid 14 range. Has had no further bleeding, coagulation studies normal, asymptomatic at this time, stable discharge home with close follow-up. Surgery evaluated and recommends holding on further colonoscopy at this time. Recommend avoiding NSAIDs or anticoagulants. - Coags normal with PT 10.5, INR 0.93, PTT 29 Hyperlipidemia: Okay to resume home Lipitor after discharge Hypothyroid: Okay to resume home levothyroxine after discharge Serial labs, monitored in the morning in the afternoon prior to discharge. Multiple discussions with patient during the day. Reassured that hemoglobin remained stable. Outpatient labs ordered. Total time spent on discharge 32 minutes in counseling, documentation, chart review, and direct care with patient. Exam Data for Last 24 hours Vital signs and Labs for Last 24 Hours: Temp Pulse Resp BP Pulse Ox O2 Del Method 99.5 F 64 18 144/77 H 97 Room Air 02/24/24 08:00 02/24/24 08:00 02/24/24 08:00 02/24/24 08:00 02/24/24 08:00 02/24/24 09:32 Laboratory Results - last 24 hr 02/23/24 18:50: WBC 6.0, RBC 4.64, Hgb 15.3, Hct 43.7, MCV 94.3 H, MCH 32.9 H, MCHC 35.0, RDW 13.7, Plt Count 213, MPV 7.7, Neut % (Auto) 52.9, Lymph % (Auto) 35.4, [place] % (Auto) 8.3, Eos % (Auto) 2.2, Baso % (Auto) 1.2, Neut # (Auto) 3.2, Lymph # (Auto) 2.1, [place] # (Auto) 0.5, Eos # (Auto) 0.1, Baso # (Auto) 0.1, PT 10.5, INR 0.93, APTT 29.3, Sodium 139, Potassium 3.8, Chloride 109 H, Carbon Dioxide 23, Anion Gap 10.8, BUN 22 H, Creatinine 1.10, Estimated Creat Clear 108, Estimated GFR 66, Est GFR ( Amer) 80, Glucose 132 H, Lactate 1.6, Calcium 8.7, Total Bilirubin 0.7, AST 46, ALT 39, Alkaline Phosphatase 75, Total Protein 7.2, Albumin 4.1, Globulin 3.1, Albumin/Globulin Ratio 1.3 02/24/24 05:17: WBC 5.9, RBC 4.43 L, Hgb 14.5, Hct 42.1, MCV 95.1 H, MCH 32.7 H, MCHC 34.3, RDW 14.0, Plt Count 191, MPV 7.6, Neut % (Auto) 45.9, Lymph % (Auto) 40.7, [place] % (Auto) 8.1, Eos % (Auto) 4.0, Baso % (Auto) 1.3, Neut # (Auto) 2.7, Lymph # (Auto) 2.4, [place] # (Auto) 0.5, Eos # (Auto) 0.2, Baso # (Auto) 0.1, Sodium 137, Potassium 3.8, Chloride 110 H, Carbon Dioxide 26, Anion Gap 4.8 L, BUN 20, Creatinine 1.10, Estimated Creat Clear 107, Estimated GFR 66, Est GFR ( Amer) 80, Glucose 101 H D, Calcium 8.3 L I & O for Last 24 hours: Intake & Output 02/21/24 02/22/24 02/23/24 02/24/24 23:59 23:59 23:59 23:59 Intake Total 270 / 270 Output Total 0 / 0 Balance 270 / 270 Weight 116.21 kg 120.928 kg Constitutional Constitutional: no acute distress, obese and cooperative *Routine HEENT Exam Head: Present normocephalic Eye: Present EOMI and PERRL ENT: Present mucous membranes moist *Routine Neck Exam Neck: Present supple; Absent lymphadenopathy *Routine Respiratory Exam Respiratory: Present CTA bilaterally; Absent wheezes or crackles *Routine Cardiovascular Exam Cardiovascular: Present RRR *Routine Abdominal Exam Abdominal: Present soft and normoactive bowel sounds; Absent tenderness *Routine Rectal Exam Patient deferred: visual exam *Routine Exam Patient deferred: penile exam *Routine Extremities Exam Extremities: Absent cyanosis, clubbing or edema *Routine Skin Exam Skin: Present warm; Absent rash *Routine Neurological Exam Neurological: Present alert, oriented X3 and moving all extremities; Absent altered mental status Results Data Completed and Pending Labs on day of discharge: Labs from last 24 hours 02/24/24 02/23/24 05:17 18:50 WBC 5.9 6.0 RBC 4.43 L 4.64 Hgb 14.5 15.3 Hct 42.1 43.7 MCV 95.1 H 94.3 H MCH 32.7 H 32.9 H MCHC 34.3 35.0 RDW 14.0 13.7 Plt Count 191 213 MPV 7.6 7.7 Neut % (Auto) 45.9 52.9 Lymph % (Auto) 40.7 35.4 [place] % (Auto) 8.1 8.3 Eos % (Auto) 4.0 2.2 Baso % (Auto) 1.3 1.2 Neut # (Auto) 2.7 3.2 Lymph # (Auto) 2.4 2.1 [place] # (Auto) 0.5 0.5 Eos # (Auto) 0.2 0.1 Baso # (Auto) 0.1 0.1 PT 10.5 INR 0.93 APTT 29.3 Sodium 137 139 Potassium 3.8 3.8 Chloride 110 H 109 H Carbon Dioxide 26 23 Anion Gap 4.8 L 10.8 BUN 20 22 H Creatinine 1.10 1.10 Estimated Creat Clear 107 108 Estimated GFR 66 66 Est GFR ( Amer) 80 80 Glucose 101 H D 132 H Lactate 1.6 Calcium 8.3 L 8.7 Total Bilirubin 0.7 AST 46 ALT 39 Alkaline Phosphatase 75 Total Protein 7.2 Albumin 4.1 Globulin 3.1 Albumin/Globulin Ratio 1.3 DS: Diagnosis Discharge Diagnosis (1) H/O colonoscopy with polypectomy: Status: Acute Code(s): Z98.890 - Other specified postprocedural states; Z86.010 - Personal history of colonic polyps (2) Acute GI bleeding: Status: Acute Code(s): K92.2 - Gastrointestinal hemorrhage, unspecified Meds Home Medications and Allergies Home Medications ?Medication ?Instructions ?Recorded ?Confirmed ?Type atorvastatin 40 mg tablet 40 mg PO HS #90 tabs 10/13/23 02/23/24 Rx levothyroxine 50 mcg tablet 50 mcg PO DAILY thyroid #90 tabs 10/13/23 02/23/24 Rx New Prescriptions to Start Prescriptions: Allergies Allergy/AdvReac Type Severity Reaction Status Date / Time No Known Allergies Allergy Verified 02/22/24 10:45 Discharge Plan Disposition Patient Disposition: Home, Self-Care Condition: Fair Follow up Plan Follow up with: Amisha Beebe APRN [Primary Care Provider] - 03/01/24 9:30 am Prescriptions/Medication Reconciliation: Continued levothyroxine 50 mcg tablet 50 mcg PO DAILY Qty: 90 3RF atorvastatin 40 mg tablet 40 mg PO HS Qty: 90 3RF Other Ambulatory Orders: Complete Blood Count Auto Diff (Routine) Timeframe: 1 Day Facility: [facility] - Location: Laboratory Ordered By: Adair Perez Problem Reconciliation Problems Reviewed?: Yes Patient Discharge Instructions ACTIVITY: Continue current activity DIET: continue same diet Patient Instructions: DI for Colon Polypectomy, DI for Gastrointestinal Bleeding Print Language: Lithuanian Providers Primary Care Provider: Amisha Beebe Admit Provider: Adair Perez Attending Provider: Adair Perez
[2024-02-24 16:06] LABS: Hematocrit 40.6 % (42.0-52.0); Hemoglobin 14.1 g/dL (14.1-18.0)
== END 2024-02-24 16:54 | disposition home or self-care (01) ==
LOC: ER 19:05 → 2ND 21:12 → ER 21:48
PROVIDERS: Admitting Provider Internal Medicine Adolescent Medicine; Emergency Provider Emergency Medicine; PCP Nurse Practitioner Family; Visit Provider Internal Medicine Adolescent Medicine
DX: K92.2 Gastrointestinal hemorrhage, unspecified (principal); E78.5 Hyperlipidemia, unspecified; E03.9 Hypothyroidism, unspecified; Z79.899 Other long term (current) drug therapy
CPT/HCPCS: 36415; 74174; 80048; 80053; 83605; 85014; 85018; 85025; 85610; 85730; 99285; G0378; Q9967

== ENCOUNTER 2025-01-03 15:25 | Outpatient (CLI) | payer BC, SELFPAY ==
[2025-01-03 15:03] LABS: Basophils # 0.1 K/mm3 (0-0.2); Basophils % 1.1 % (0.1-2.0); Eosinophils # 0.2 Kmm3 (0.0-0.4); Eosinophils % 4.3 % (0.1-12.0); Hematocrit 41.5 % (42.0-52.0); Hemoglobin 14.3 g/dL (14.1-18.0); Immature Granulocytes # 0.01 10^3uL; Immature Granulocytes % 0.2 %; Lymphocytes # 1.8 K/mm3 (0.7-4.5); Lymphocytes % 32.9 % (10-50); Mean Corpuscular HGB Conc 34.5 g/dL (31.8-35.4); Mean Corpuscular Hemoglobin 31.2 pg (27.0-31.2); Mean Corpuscular Volume 90.4 fl (80-94); Mean Platelet Volume 8.9 fl (7.4-10.4); Monocytes # 0.6 K/mm3 (0.1-1.0); Monocytes % 10.4 % (1.7-9.3); Neutrophils # 2.8 K/mm3 (1.8-7.8); Neutrophils % 51.1 % (37.0-80.0); Nucleated Red Blood Cells # 0 10^3/uL; Nucleated Red Blood Cells % 0 %; Platelet Count 170 K/mm3 (142-424); Red Blood Count 4.59 M/mm3 (4.60-6.20); Red Cell Distribution Width 12.7 % (11.5-17.5); Red Cell Distribution Width-SD 41.1 fL; White Blood Count 5.4 K/mm3 (4.8-10.8)
[2025-01-03 15:26] LABS: D-Dimer 0.45 ug/mL (0.0-0.5)
[2025-01-03 15:31] LABS: Albumin Level 4.1 g/dl (3.5-5.0); Chloride 105 mmol/L (98-107)
[2025-01-03 15:32] LABS: Potassium 4.3 mmoL/L (3.5-5.1); Sodium 137 mmol/L (136-145)
[2025-01-03 15:34] LABS: Alanine Aminotransferase 33 U/L (12-78); Albumin/Globulin Ratio 1.6 (1.1-1.8); Alkaline Phosphatase 87 U/L (38-126); Anion Gap 7.3 mEq/L (5-15); Aspartate Amino Transferase 33 U/L (17-59); Bilirubin,Total 0.6 mg/dl (0.2-1.3); Blood Urea Nitrogen 17 mg/dl (9-20); Carbon Dioxide 29 mmol/L (22.0-30.0); Cholesterol 263 mg/dl (140-200); Estimated Glomerular Filt Rate 74 ml/min (>60); GFR (African American) 89 ML/MIN (>60); Globulin 2.5 g/dL (1.3-3.2); Iron 105 ug/dL (49-181); Total Protein,Serum 6.6 g/dl (6.3-8.2); Triglycerides 253 mg/dl (30-150); VLDL Cholesterol 51 mg/dL (0-40)
[2025-01-03 15:35] LABS: Calcium 10.1 mg/dl (8.4-10.2); Chol/HDL Ratio 8.2 (1-3.5); Glucose 105 mg/dl (74-100); HDL Cholesterol 32 mg/dl (40-60); Magnesium 2.1 mg/dl (1.6-2.3); Phosphorous 3.4 mg/dl (2.5-4.5)
[2025-01-03 15:42] LABS: NT Pro Brain Natriuretic Pep. 35.7 pg/mL (0-125)
[2025-01-03 15:45] LABS: Hemoglobin A1C 5.2 % (4.0-6.0); Total Iron Binding Capacity 263 ug/dL (261-462)
[2025-01-03 15:47] LABS: Direct LDL Cholesterol 166.51 mg/dL (100-129)
[2025-01-03 15:49] LABS: 25-OH Vitamin D, Total 19.9 ng/mL (30-100)
[2025-01-03 15:51] LABS: Free T4 (Free Thyroxine) 0.66 ng/dl (0.78-2.19)
[2025-01-03 16:04] LABS: Thyroid Stimulating Hormone 4.18 uIU/mL (0.465-4.68)
[2025-01-03 16:08] LABS: Ferritin 186 ng/ml (17.9-464)
[2025-01-03 17:29] LABS: Vitamin B12 390 pg/mL (239-931)
== END 2025-01-03 23:59 | disposition home or self-care (01) ==
LOC: LAB.DROPOF 15:25
PROVIDERS: PCP Nurse Practitioner Family; Visit Provider Nurse Practitioner Family
DX: Z12.5 Encounter for screening for malignant neoplasm of prostate (principal); E11.9 Type 2 diabetes mellitus without complications; E03.9 Hypothyroidism, unspecified; R53.83 Other fatigue; E78.5 Hyperlipidemia, unspecified; M54.16 Radiculopathy, lumbar region; R06.00 Dyspnea, unspecified; R60.0 Localized edema; G47.33 Obstructive sleep apnea (adult) (pediatric); R41.3 Other amnesia; I10 Essential (primary) hypertension
CPT/HCPCS: 80053; 80061; 82306; 82607; 82728; 83036; 83540; 83550; 83735; 83880; 84100; 84439; 84443; 85025; 85378; G0103

== ENCOUNTER 2025-01-08 14:39 | Outpatient (CLI) | payer BC, SELFPAY ==
--- NOTE | 2025-01-08 14:46 | XR_ITS ---
FINAL REPORT CLINICAL HISTORY: lumbar spinal pain, left lower back pain, radiating into left leg x's 3 weeks COMPARISON: 04/25/2023 FINDINGS: 3 views of the lumbar spine were obtained. There is no evidence of fracture. There is no malalignment. The vertebrae are normal in height. There is mild anterior osteophyte formation L2-3 through L4-5. Moderate facet sclerosis is noted in the lower lumbar spine. No paraspinous soft tissue abnormalities identified. IMPRESSION: Degenerative/chronic changes without acute bony abnormality. Reviewed, Interpreted and Dictated by Ed Moreno MD Transcribed by Rosette Wilson Authenticated and [facility]
--- NOTE | 2025-01-08 14:46 | XR_ITS ---
FINAL REPORT TECHNIQUE: Chest PA & Lateral CLINICAL HISTORY: Shortness of breath x 3 weeks COMPARISON: None FINDINGS: 2 views of the chest were performed. The heart size is normal. The mediastinum is within normal limits. There is no acute cardiopulmonary process. There are no pleural effusions. There is no pneumothorax. The bony thorax appears intact. IMPRESSION: No acute cardiopulmonary process. Reviewed, Interpreted and Dictated by Ed Moreno MD Transcribed by Rosette Wilson Authenticated and . [facility]
== END 2025-01-08 23:59 | disposition home or self-care (01) ==
LOC: RAD 14:39
PROVIDERS: PCP Nurse Practitioner Family; Visit Provider Nurse Practitioner Family
DX: M47.26 Other spondylosis with radiculopathy, lumbar region (principal); E03.9 Hypothyroidism, unspecified; E78.5 Hyperlipidemia, unspecified; R53.83 Other fatigue; R06.00 Dyspnea, unspecified; R60.0 Localized edema; Z13.1 Encounter for screening for diabetes mellitus
CPT/HCPCS: 71046; 72100

== ENCOUNTER 2025-06-11 06:02 | Outpatient (CLI) | payer BC, SELFPAY ==
--- NOTE | 2025-06-11 09:00 | CA_ITS ---
APPROVED REPORT EXAM: Comprehensive 2D, Doppler, and color-flow Echocardiogram Licensed Bondsman: HOLLIE Junior, RVS Ht: 5 ft 9 in Wt: 285lbs BSA: 2.40 BP: 157/84 mmHg Indications: CP, SOB, HLD, Fatigue Echo Enhancing Agent Indication: NO IV ACCESS Comments: Technically limited 2D Dimensions Left Atrium 2.82 cm LA Volume 75.00 mL LA Volume Index 30.50 mL/m2 (M/F) 16-34 M-Mode Dimensions RVDd 2.65 cm (0.9-2.6) LA Diam 3.36 cm (1.9-4.0) LVDd 4.98 cm (3.5-5.7) LVDs 3.05 cm (3.5-5.7) IVSd 1.30 cm (0.6-1.1) PWd 1.30 cm (0.6-1.1) EF (Teich) 68.90% EPSs 0.58 cm FS 38.80% EDV (Teich) 117.10 mL TAPSE 2.31 (<1.7) ESV (Teich) 36.40 mL LV Diastology E Decel Time 183 (160-240 msec) E/A Ratio 0.79 MED A' 9.00 cm/s LAT A' 8.50 cm/s Aortic Valve CELINA Index 1.17 cm2/m2 AoV Peak Chadd. 120.0 (50-130 cm/s) AO Peak GR. 5.80 mmHg AO Mean GR. 2.90 (<5 mmHg) AO VTI 22.0 (18-25 cm) CELINA (VTI) 2.87 (2.5-4.5 cm2) Mitral Valve MV A Velocity 69.0 (40-130 cm/s) E/A Ratio 0.79 Pulmonary Valve NJ End VMAX 182.0 cm/s Left Ventricle The left ventricle is normal size. Left ventricular systolic function is normal. The left ventricular ejection fraction is within the normal range. There is increased left ventricular wall thickness. There is normal LV segmental wall motion. The left ventricular diastolic function is normal. LVEF is 55% Right Ventricle The right ventricle is mildly dilated. The right ventricular systolic function is normal. Atria Left atrium is mildly dilated. Right atrium is mildly dilated. There is no color Doppler evidence of interatrial shunt. Aortic Valve The aortic valve is mildly thickened. There is no hemodynamically significant aortic valvular stenosis. Trace aortic regurgitation is present. Mitral Valve The mitral valve is normal in structure. No evidence of mitral valve stenosis. Trace mitral regurgitation is present. Tricuspid Valve The tricuspid valve leaflets are thin and pliable. Trace tricuspid regurgitation. There is insufficient TR jet to estimate RVSP. Pulmonic Valve The pulmonary valve is grossly normal in structure. Trace pulmonic valve regurgitation is present. Great Vessels The aortic root is normal in size. IVC is normal in size and collapses >50% with inspiration. Pericardium There is no pericardial effusion. Other Information Study Quality: Fair Conclusion Normal biventricular systolic function. Mild RV dilation. Mild biatrial dilation. No significant valvular stenosis or regurgitation. Electronically signed by : Cindy Ospina MD 06/15/2025 19:30:23
== END 2025-06-11 23:59 | disposition home or self-care (01) ==
LOC: RAD 06:03
PROVIDERS: PCP Nurse Practitioner Family; Visit Provider Physician Assistant
DX: I51.7 Cardiomegaly (principal); I20.89 Other forms of angina pectoris; E78.5 Hyperlipidemia, unspecified; M25.519 Pain in unspecified shoulder; M79.602 Pain in left arm
CPT/HCPCS: 93306

== ENCOUNTER 2025-07-02 08:35 | Outpatient (CLI) | payer BC, SELFPAY ==
--- NOTE | 2025-07-02 10:00 | CT_ITS ---
APPROVED REPORT Director Hematology: CLINICAL INDICATION Chest Pain TECHNIQUE Image Acquisition: A 128 slice MDCT scanner (Jogga View) was used for data acquisition. A noncontrast coronary calcium scan was performed. A CT attenuation threshold of 130 Hounsfield units (HU) was used for the detection of calcium in contiguous voxels of 1 sq mm in area to be counted as individual lesions. Bolus tracking in the ascending aorta with a threshold of 180 HU was performed. Immediately afterwards, ECG synchronized cardiac CT was then performed from the cardiac base to apex using retrospective gating with ECG tube current modulation. A total of 85 mL of Isovue 370 mg/mL contrast medium was administered at 5 mL/sec followed by a saline flush using a biphasic injection protocol. A tube voltage of 120 KVp was used. The patient received the following medications prior to the cardiac CT. 50 mg of oral metoprolol 15 mg of oral ivabradine 0.4 mg of sublingual nitroglycerin The average heart rate at the time of acquisition was 67 bpm and regular. Image Reconstruction Transaxial images were reconstructed at 0.67 mm slide thickness. Data was reviewed interactively on an advanced workstation capable of 2 and 3-dimensional displays in all conventional reconstruction formats, including multiplanar reformations, maximum intensity projections, curved multiplanar reformations, and volume rendered reconstructions. When applicable, selected routine images describing the relevant coronary anatomy and pathology were saved and sent to PACS. Complications None Technical Quality Overall image quality was good. Coronary artery opacification was adequate. Total DLP (Dose-Length Product) is 1680.6 mGy-cm. The reported value represents the total of one or more individual components during the CT acquisition of this date and at this time, and as such, the same value may appear in more than one CT report depending on the interpreting/reporting physicians. COMPARISON None FINDINGS CT Coronary Calcium Scoring LMA (Left Main Artery) = 11 LAD (Left Anterior Descending) = 188 LCX (Left Coronary Circumflex) = 24 RCA (Right Coronary Artery) = 44 Total Calcium Score = 267 using the AJ-130 method. The observed calcium score of 267 is at 58th percentile for subjects of the same age, sex, and race/ethnicity. The interpretation of the calcium heart score is based on the following continuum*: 0 = no calcified plaque detected (risk of coronary artery disease is very low ??? less than 5%) 1-10 = calcium detected in extremely minimal levels (risk of coronary diseases is still low ??? less than 10%) 11-100 = mild levels of plaque detected with certainty (mild or minimal narrowing of heart arteries is likely) 101-400 = definite,at least moderate levels of plaque detected (relatively high risk of a heart attack within 3-5 years) >401-999 = extensive levels of plaque detected (high risk of heart attack, high levels of vascular disease are present, high likelihood of at least one significant coronary narrowing) *The calcium heart score quantifies the burden of coronary calcification/plaque in the coronary arteries. The calcium heart score is not able to evaluate the presence or burden of non-calcified (i.e. soft) plaque. There is no identifiable calcification in the aortic valve, mitral annulus or mitral valve, pericardium, or myocardium. Coronary CT Angiography The coronary arterial system is right dominant. Quantitative Stenosis Grading: Left Main (LM): The left main originates normally from the left sinus of Valsalva. The LM bifurcates into the left anterior descending artery and left circumflex artery. There is mixed calcified/noncalcified plaque in the proximal and mid LM segments, with < 25% luminal stenosis. Left Anterior Descending (LAD) and Diagonal Branches: The LAD gives off 3 diagonal branch(es). There is mixed calcified/noncalcified plaque in the proximal and mid LAD segments, with up to 50 to 70% luminal stenosis. There is no evidence of LAD-myocardial bridge. Left Circumflex (LCX) and Obtuse Marginals (OM): The LCX gives off 1 Obtuse Marginal (OM) branch(es). There is mixed calcified/noncalcified plaque in the proximal LCx segment, with < 25% luminal stenosis. Right Coronary Artery (RCA): The RCA originates normally from the right sinus of Valsalva. The RCA gives off a posterior descending artery (PDA) and posterolateral (PL) branches. There is mixed calcified/noncalcified plaque in the proximal RCA segment, with < 25% luminal stenosis. Non-Coronary Cardiac Findings: Analysis of the left ventricular (LV) structure and function was performed after 3-D reconstruction of the LV from axial images, with user-corrected automatic contouring for assessment of LV volumes and user-defined reconstruction from oblique planes for measurement of 3-D cardiac structure and function. -The left ventricle systolic function is normal. -There is no left atrial appendage filling defect. Two right pulmonary veins and two left pulmonary veins drain normally into the left atrium. -No pericardial thickening or calcification. -Central and branch pulmonary arteries in the [id number] are unremarkable. -Thoracic aorta within the visualized thoracic aortic-branches in the [id number] is unremarkable. Extracardiac Structures No significant extra-cardiac findings. Note, however, that this study is focused on the cardiac findings. IMPRESSION -Presence of coronary calcification with an Agatston score = 267 using the AJ-130 method. -The observed calcium score of 267 is at 58th percentile for subjects of the same age, sex, and race/ethnicity. -Mild to moderate multivessel atherosclerotic coronary disease, with possible evidence of significant flow-limiting atherosclerosis of the proximal/mid LAD segments. -CAD-RADS 3. Management recommendations per ACC/AHA guidelines*, as clinically appropriate. *Recommendations: CAD RADS 0: Reassurance. Consider non-atherosclerotic causes of chest pain. CAD RADS 1: Consider non-atherosclerotic causes of chest pain. Consider preventive therapy and risk factor modification. CAD RADS 2: Consider non-atherosclerotic causes of chest pain. Consider preventive therapy and risk factor modification, particularly for patients with nonobstructive plaque in multiple segments. CAD RADS 3: Consider further functional testing. Consider symptom-guided anti-ischemic and preventive pharmacotherapy as well as risk factor modification per published guideline statements. CAD RADS 4A: Consider further functional testing or invasive coronary angiography with revascularization per published guideline statements. Consider symptom-guided anti-ischemic and preventive pharmacotherapy as well as risk factor modification per published guideline statements. CAD RADS 4B: Invasive coronary angiography recommended with revascularization per published guideline statements. Consider symptom-guided anti-ischemic and preventive pharmacotherapy as well as risk factor modification per published guideline statements. CAD RADS 5: Consider invasive angiography and/or viability assessment with revascularization per published guideline statements. Consider symptom-guided anti-ischemic and preventive pharmacotherapy as well as risk factor modification per published guideline statements. CRITICAL RESULT None COMMUNICATION Per this written report The coronary and cardiac findings of this CCTA were reviewed, reported, and signed by Edilberto Ospina MD (Slagger) Conclusion Electronically signed by : Cindy Ospina MD 07/03/2025 12:02:47
[2025-07-02 10:50] VITALS: BMI 41.3
[2025-07-02] MEDS: METOPROLOL TARTRATE 50MG TABLET 50 MG (10:59)
[2025-07-02] MEDS: IVABRADINE HCL 7.5MG TABLET 15 MG PO (10:59)
[2025-07-02 11:10] VITALS: BP 161/84; PULSE 71; RESP 18; TEMP 36.9; O2SAT 96
[2025-07-02 11:19] LABS: Anion Gap 13.7 mEq/L (5-15); Blood Urea Nitrogen 14 mg/dl (9-20); Calcium 9.3 mg/dl (8.4-10.2); Carbon Dioxide 29 mmol/L (22.0-30.0); Chloride 103 mmol/L (98-107); Creatinine Clearance Estimated 56 mL/min (50-200); Creatinine,Serum 1.20 mg/dl (0.66-1.25); Estimated Glomerular Filt Rate 60 ml/min (>60); GFR (African American) 72 ML/MIN (>60); Glucose 109 mg/dl (74-100); Potassium 4.7 mmoL/L (3.5-5.1); Sodium 141 mmol/L (136-145)
[2025-07-02 11:45] VITALS: BP 145/90; PULSE 77; RESP 18; TEMP 36.3; O2SAT 98
[2025-07-02 11:50] VITALS: BP 158/93; PULSE 71; RESP 18; O2SAT 99
[2025-07-02 11:55] VITALS: BP 137/90; PULSE 69; RESP 18; O2SAT 99
[2025-07-02 12:00] VITALS: BP 122/76; PULSE 82; RESP 18; TEMP 36.3; O2SAT 97
[2025-07-02] MEDS: SODIUM CHLORIDE 0.9% 10ML SYR (RAD ONLY) 10 ML IV (12:06)
[2025-07-02] MEDS: 0.9 % SODIUM CHLORIDE 50 ML VIAL IV (12:06)
[2025-07-02] MEDS: IOPAMIDOL-370 (76%);100ML BOTTLE 85 ML IV (12:07)
== END 2025-07-02 12:12 | disposition home or self-care (01) ==
PROVIDERS: PCP Nurse Practitioner Family; Visit Provider Internal Medicine
DX: I25.118 Atherosclerotic heart disease of native coronary artery with other forms of angina pectoris (principal); M79.602 Pain in left arm; E78.49 Other hyperlipidemia; M25.512 Pain in left shoulder; Z87.891 Personal history of nicotine dependence; Z80.1 Family history of malignant neoplasm of trachea, bronchus and lung; Z12.2 Encounter for screening for malignant neoplasm of respiratory organs
CPT/HCPCS: 75574; 80048; Q9967

== ENCOUNTER 2025-07-04 08:42 | Day surgery (SDC) | payer BC, SELFPAY ==
[2025-07-04] VITALS (10 sets, daily range): BP systolic 105–157; BP diastolic 58–74; PULSE 59–90; RESP 18–20; TEMP 36.6; O2SAT 92–96; BMI 43.0
--- NOTE | 2025-07-04 07:07 | IR_ITS ---
APPROVED REPORT Patient Location: Outpatient PROCEDURES Left heart catheterization Left ventriculogram Selective coronary angiogram Intravascular ultrasound the proximal LAD INDICATION Coronary artery disease, Abnormal CCTA, Angiographic ambiguity Informed consent was obtained prior to the procedure. COMPLICATIONS NONE Estimated Blood Loss: LESS THAN 10 ML TECHNIQUE One percent lidocaine used to anesthetize the right anterior aspect of the wrist. The right radial artery was accessed via the Seldinger technique. A 6 Urdu sheath was placed in the right radial artery. 2.5 mg of Verapamil, 800 mcg of nitroglycerin, 1mg Lidocaine and 5000 U Heparin were given through the arterial sheath. The JL3 catheter was also used to perform left heart catheterization, left ventriculogram and selective coronary angiogram. At the end the diagnostic angiogram therapeutic heparin was administered giving a therapeutic ACT and the guide catheter was placed in left main artery followed by Choice PT extra-support wire placed down the LAD. Intravascular ultrasound probe was advanced in the proximal to midportion due to angiographic ambiguity. There was moderate calcification with an MLA greater than 5 mm???. Because of this the apparatus was removed the sheath was removed and hemostasis was achieved using TR banding patient was transferred to the postop putting in stable condition ANGIOGRAPHIC RESULTS The left main artery Normal The left anterior descending artery Has proximal 20% calcified stenosis with mid vessel 40% calcified stenosis in distal 20% luminal regularities. A large diagonal artery has an ostial 40% stenosis The circumflex artery Large and has diffuse 20 to 30% calcified stenosis The right coronary artery Large dominant and has diffuse 10 to 20% luminal regularities The AVILA ventriculogram reveals Normal 65% The left ventricular end-diastolic pressure 15 mmHg IMPRESSION Moderate calcified disease in the proximal and mid LAD as described above Normal ejection fraction Normal LVEDP PLAN 1. Medical management with aggressive risk factor modification Electronically signed by : Bob Nickerson MD 07/05/2025 12:17:49
[2025-07-04 09:08] LABS: Hematocrit 43.3 % (42.0-52.0); Hemoglobin 15.4 g/dL (14.1-18.0); Immature Granulocytes % 0.3 %; Mean Corpuscular HGB Conc 35.6 g/dL (31.8-35.4); Mean Corpuscular Hemoglobin 31.9 pg (27.0-31.2); Mean Corpuscular Volume 89.6 fl (80-94); Nucleated Red Blood Cells % 0 %; Platelet Count 176 K/mm3 (142-424); Red Blood Count 4.83 M/mm3 (4.60-6.20); Red Cell Distribution Width-SD 41.0 fL; White Blood Count 6.2 K/mm3 (4.8-10.8)
[2025-07-04 09:18] LABS: Chloride 103 mmol/L (98-107); Potassium 4.2 mmoL/L (3.5-5.1); Sodium 143 mmol/L (136-145)
[2025-07-04 09:21] LABS: Anion Gap 14.2 mEq/L (5-15); Blood Urea Nitrogen 14 mg/dl (9-20); Calcium 8.7 mg/dl (8.4-10.2); Carbon Dioxide 30 mmol/L (22.0-30.0); Creatinine Clearance Estimated 54 mL/min (50-200); Creatinine,Serum 1.20 mg/dl (0.66-1.25); Estimated Glomerular Filt Rate 60 ml/min (>60); GFR (African American) 72 ML/MIN (>60); Glucose 109 mg/dl (74-100)
[2025-07-04] MEDS: NITROGLYCERIN 800MCG/8ML SYR (CATH LAB) 800 MCG IA (13:30)
[2025-07-04] MEDS: 0.9 % SODIUM CHLORIDE 500 ML 25 ML IV (13:30)
[2025-07-04] MEDS: FENTANYL 100MCG/2ML VIAL 50 MCG IV (13:30)
[2025-07-04] MEDS: MIDAZOLAM HCL 1MG/ML 5ML VIAL 1 MG IV (13:30)
[2025-07-04] MEDS: LIDOCAINE 1% 10ML MDV 10 ML IJ (13:30)
[2025-07-04] MEDS: HEPARIN 1,000 UNITS/500ML NS (CATH LAB) 3000 UNIT IV (13:31)
[2025-07-04] MEDS: HEPARIN 1,000 UNITS/ML 10ML VIAL (CATH LAB) 5000 UNIT IV (13:31)
[2025-07-04] MEDS: VERAPAMIL 2.5MG/ML 2ML VIAL 2.5 MG IV (13:31)
[2025-07-04 14:53] LABS: CATHL Activated Clotting Time 394 SEC (74-125)
== END 2025-07-04 16:25 | disposition home or self-care (01) ==
PROVIDERS: PCP Nurse Practitioner Family; Visit Provider Internal Medicine
PROC: 4A023N7 Measurement of Cardiac Sampling and Pressure, Left Heart, Percutaneous Approach (ICD-10-PCS; CPT 93452; principal; 2025-07-04 14:00)
DX: I25.118 Atherosclerotic heart disease of native coronary artery with other forms of angina pectoris (principal); R94.30 Abnormal result of cardiovascular function study, unspecified; E78.49 Other hyperlipidemia; R06.09 Other forms of dyspnea; E03.9 Hypothyroidism, unspecified; Z79.890 Hormone replacement therapy; Z79.899 Other long term (current) drug therapy
CPT/HCPCS: 80048; 85025; 85347; 92978; 93458; 99152; C1725; C1769; C1887; J1200; J1644; J2003; J3010; J7040; Q9967

== ENCOUNTER 2025-07-10 10:12 | Outpatient (CLI) | payer BC, SELFPAY ==
[2025-07-10 11:08] LABS: Hematocrit 44.0 % (42.0-52.0); Hemoglobin 15.7 g/dL (14.1-18.0); Immature Granulocytes % 0.2 %; Mean Corpuscular HGB Conc 35.7 g/dL (31.8-35.4); Mean Corpuscular Hemoglobin 31.6 pg (27.0-31.2); Mean Corpuscular Volume 88.5 fl (80-94); Nucleated Red Blood Cells % 0 %; Platelet Count 186 K/mm3 (142-424); Red Blood Count 4.97 M/mm3 (4.60-6.20); Red Cell Distribution Width-SD 40.9 fL; White Blood Count 6.2 K/mm3 (4.8-10.8)
[2025-07-10 11:46] LABS: Albumin Level 4.5 g/dl (3.5-5.0); Chloride 105 mmol/L (98-107); Potassium 4.3 mmoL/L (3.5-5.1); Sodium 135 mmol/L (136-145)
[2025-07-10 11:49] LABS: Alanine Aminotransferase 30 U/L (12-78); Alkaline Phosphatase 83 U/L (38-126); Aspartate Amino Transferase 30 U/L (17-59); Bilirubin,Direct 0.0 mg/dl (0.0-0.4); Bilirubin,Indirect 0.7 mg/dL (0.0-0.9); Bilirubin,Total 0.7 mg/dl (0.2-1.3); Bilirubin,Unconjugated 0.7 mg/dL (0.0-1.1); Blood Urea Nitrogen 21 mg/dl (9-20); Carbon Dioxide 28 mmol/L (22.0-30.0); Cholesterol 141 mg/dl (140-200); Creatinine,Serum 1.30 mg/dl (0.66-1.25); Estimated Glomerular Filt Rate 54 ml/min (>60); GFR (African American) 66 ML/MIN (>60); Total Protein,Serum 7.1 g/dl (6.3-8.2); Triglycerides 91 mg/dl (30-150)
[2025-07-10 11:50] LABS: Calcium 8.9 mg/dl (8.4-10.2); Glucose 99 mg/dl (74-100); Magnesium 2.1 mg/dl (1.6-2.3)
[2025-07-10 12:04] LABS: Anion Gap 6.3 mEq/L (5-15)
[2025-07-10 12:09] LABS: HDL Cholesterol 47 mg/dl (40-60)
--- OUTSIDE RECORDS SUMMARY | 2025-07-10 12:10 | XMS_ITS | Patient Health Record ---
[facility] [address] [facility] [address] [place] [id number] Care Team Providers Care Boiler Tube Blower Name Role Phone Jeimy Harrington Primary Care Provider Allergies Allergen (clinical drug ingredient) Drug/Non Drug Allergy documented on EMR Reaction Allergy Type Onset Date Status Tuberculin PPD Unknown Drug Allergy Ac tive Medications Medication SIG (Take, Route, Frequency, Duration) Notes Start Date End Date Status Rosuvastatin Calcium 20 MG 1 tablet Oral ly Once a day; Duration: 90 days 04/27/2023 Active Levothyroxine Sodium 75 MCG 1 tablet in the morning on an empty stomach Orally Once a day; Duration: 90 days 04/27/2023 Active Celecoxib 100 MG 1 capsule with food Orally Once a day; Duration: 90 days 04/27/2023 Active Immunizations Vaccine Route Administration Date Status Comme nts Hepatitis A (adult) Unknown 05/24/2018 Administered Fluzone PF Quad (6-35 months) Unknown 05/24/2018 Administered Fluzone PF Quad (6-35 months) Unknown 05/23/2019 Administered Fluzone PF Quad (6-35 months) Unknown 05/12/2020 Administered Fluzone PF Quad (6-35 months) Unknown 05/19/2021 Administered Fluzone High Dose (65yr and older) Unknown 07/17/2022 Administered COVID 19 Moderna IM Intramuscular 08/06/2020 Administered COVID 19 Moderna Unknown 09/12/2020 Administered COVID 19 Moderna Unknown 06/10/2021 Administered Problems Problem Type SNOMED Code ICD Code Onset Dates Problem Status W/U Status Risk Notes Problem Vertigo (315566617) Vertigo (R42) Active confir med Problem Dyspepsia (582231387) Dyspepsia (R10.13) Active confirmed Problem Mixed hyperlipidemia (812862746) Mixed hyperlipidemia (E78.2) Active confirmed Problem Hyperlipidemia (26932424) Other hyperlipidemia (E78.4) Active confirmed Problem Chronic pain (04977125) Other chronic pain (G89.29) Active confirmed Problem Degeneration of cervical intervertebral disc (77602211) Degenerative disc disease, cervical (M50.30) Active confirmed Problem Lateral epicondylitis (689231231) Lateral epicondylitis of left elbow (M77.12) Active confirmed Problem Acquired hypothyroidism (973751090) Acquired hypothyroidism (E03.9) Active confirmed Problem Gastroesophageal reflux disease (727963424) Gastroesophageal reflux disease, esophagitis presence not specified (K21.9) Active confirmed Problem Labyrinthitis (64833812) Labyrinthitis, unspecified laterality (H83.09) Active confirmed Problem Degeneration of cervical intervertebral disc (62933363) Degenerative cervical disc (M50.30) Active confirmed Problem Abnormal results of cardiovascular function studies (492024049) Abnormal stress ECG with treadmill (R94.39) Active confirmed Problem Obesity (814314456) Non morbid o besity (E66.9) Active confirmed Problem Localized, primary osteoarthritis of the shoulder region (057674057) 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) Active confirmed Problem Cervical spondylosis without myelopathy (487157485) Cervical spondylosis with radiculopathy (M47.22) Active confirmed Plan Of Treatment No Information Insurance Providers Payer Name Payer Address Payer Phone Subscriber Number Group Number Insured Name Patient Relationship to Insured Coverage Start Date Coverage End Date [employer] [address] [place] [address] [id number] LUIS BENNETT Other [facility] [address] [place] [address] [id number] SHEILA BENNETT Self - patient is the insured Medications Administered Medication Instructions Date of Administration Dosage Notes Dexamethasone 02/10/2021 1 mL Dexamethasone 09/21/2022 1 mL Medical (General) History Medical History History ICD Code hyperlipidemia Hypothyroidism Esophageal reflux 08/11/2020 Carotids less than 20% bilat Surgical History Surgery Date(Month/Year) colonoscopy 2019 Hospitalization History Reason Date(Month/Year)
[2025-07-10 12:17] LABS: Thyroid Stimulating Hormone 9.79 uIU/mL (0.465-4.68)
[2025-07-10 12:51] LABS: Free T4 (Free Thyroxine) 0.64 ng/dl (0.78-2.19)
== END 2025-07-10 23:59 | disposition home or self-care (01) ==
LOC: LAB 10:13
PROVIDERS: PCP Nurse Practitioner Family; Visit Provider Physician Assistant
DX: I25.10 Atherosclerotic heart disease of native coronary artery without angina pectoris (principal); E78.49 Other hyperlipidemia; E03.9 Hypothyroidism, unspecified; Z77.090 Contact with and (suspected) exposure to asbestos
CPT/HCPCS: 36415; 80048; 80061; 80076; 83735; 84439; 84443; 85025